=== PATIENT | female | born 1960 | race Caucasian/White ===

== ENCOUNTER → 2021-10-04 | Outpatient (CLI) | payer BC ==
--- NOTE | 2021-10-04 11:45 | Diagnostic Imaging Report ---
INDICATION: Right hand pain in the region of the 4th and 5th metacarpals. TIME OF EXAM: 10:49 AM. TECHNIQUE: Three views of the right hand were obtained. FINDINGS: The metacarpals appear to be intact. The phalanges are intact. The carpus is unremarkable. No fractures are seen. 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 IMPRESSION: No acute bony abnormality is detected. Dictated by: Dictated on workstation # [id number]
== END ==
LOC: RAD FS 10:36
PROVIDERS: ATTEND Nurse Practitioner
DX: M79.641 Pain in right hand (principal)
CPT/HCPCS: 73130